=== PATIENT | male | born 1970 | race Caucasian/White ===

== ENCOUNTER 2017-07-28 16:30 | Emergency (ER) | payer OTHER ==
[~2017-07-28] VITALS: Ht 177.8 cm; Wt 80.0 kg
[2017-07-28 16:37] VITALS: BP 127/85
== END 2017-07-28 16:52 | disposition home or self-care (01) ==
LOC: ED 16:50
DX: J01.00 Acute maxillary sinusitis, unspecified (principal)
CPT/HCPCS: 99283